=== PATIENT | female | born 1990 | race American Indian/Alaskan Native ===

== ENCOUNTER 2022-01-08 08:30 | Emergency (ER) | payer MEDICAID ==
[2022-01-08 08:40] VITALS: BP 105/57
[2022-01-08 16:25] LABS: Bilirubin,Urine NEG (Negative); Blood,Urine NEG (Negative); Color,Urine Yellow (Yellow); Protein,Urine <15 mg/dL mg/dL (Negative)
[2022-01-08 16:31] LABS: Mucus,Urine 1+ /HPF; Sperm,Urine FEW /HPF (NP)
== END 2022-01-08 16:45 | disposition left against medical advice (07) ==
LOC: ED 08:30
DX: O20.9 Hemorrhage in early pregnancy, unspecified (principal); O26.892 Other specified pregnancy related conditions, second trimester; R10.9 Unspecified abdominal pain; Z3A.14 14 weeks gestation of pregnancy; Z53.21 Procedure and treatment not carried out due to patient leaving prior to being seen by health care provider
CPT/HCPCS: 81001; 87086